=== PATIENT | female | born 1950 | race Caucasian/White ===

== ENCOUNTER 2016-11-07 17:39 | Emergency (ER) | payer SELFPAY ==
--- NOTE | 2016-11-18 09:41 | ER ---
ADMIT: 11/07/2016 RM/LOC: ER [facility] MR#: [id number] [facility] [address] [place] [id number] [address] [place] [address] Emergency Room Report SEX: F AGE: 66 : 1950 DATE: 11/07/2016 ADDENDUM: CHIEF COMPLAINT: Abdominal pain. HISTORY OF PRESENT ILLNESS: This is a 66-year-old female, who started developing abdominal pain just within the last couple days. It sounds like she had a little bit of diarrhea, also had one hard stool and then she had some bright red blood. On examination, she does have a little tiny fistula or a little tiny fissure on the rectum, and like that is where the bright red blood came from. She has tenderness in the right and left lower quadrant, worse on the left. I told her this could be viral at this time. Gave her Zofran and Tylenol, her pain improved. I am discharging her home, having her followup with her primary care physician if symptoms continue. CLINICAL IMPRESSION: Abdominal pain with diarrhea. TESS Jaime / Willis Villanueva MD / [place] JOB #: [id number] CC: Donny Ivory MD, Attending Physician Justen Weldon MD, Family Physician
== END 2016-11-07 19:30 | disposition home or self-care (01) ==
LOC: ER 17:39
DX: R10.11 Right upper quadrant pain (principal); R10.31 Right lower quadrant pain; R19.7 Diarrhea, unspecified; Z79.899 Other long term (current) drug therapy